=== PATIENT | female | born 1990 | race Caucasian/White ===

== ENCOUNTER 2019-06-04 18:48 | Emergency (ER) | payer OTHER ==
[2019-06-04 18:59] VITALS: BMI 32.0
--- NOTE | 2019-06-04 18:59 | PDOC ---
Rapid Medical Evaluation Time Seen by Provider: 06/04/19 18:54 Medical Evaluation: Allergies Allergy/AdvReac Type Severity Reaction Status Date / Time No Known Allergies Allergy Verified 06/04/19 18:54 06/04/19 18:55 The patient presents with L sided low back pain for the past two days. Took 400mg of Motrin around 4pm without relief of symptoms. Denies fever and dysuria , but admits to frequency and nausea. Pt reports having an IUD Exam: (+) CVA tenderness on the L, also associated LLQ discomfort Orders; Urine, labs Pt to proceed to the ER for further evaluation Discharge Disposition - Diagnosis Flank pain - Referrals - Patient Instructions - Post Discharge Activity
--- NOTE | 2019-06-04 20:02 | PDOC ---
History of Present Illness - General Chief Complaint: Pain, Acute Stated Complaint: LOWER BACK PAIN Time Seen by Provider: 06/04/19 18:54 History Source: Patient Exam Limitations: No Limitations - History of Present Illness Initial Comments: Patient reports sharp L back pain and LLQ abdominal pain "similar to having a baby" that has been present constantly today and has not been relieved with Motrin. Initially, the patient had sharp L back pain that woke her from sleep two nights ago, alleviated at that time after some Motrin. Yesterday the patient had some nausea, but no pain. Today, the patient denies nausea. Patient also reports months of lower abdominal pain "that feels like you have to pass gas but you can't", but that has typically been on both lower abdominal quadrants. She further notes that she has a copper IUD in place, and occasionally has crampy pain with this. She is not certain whether this pain is similar. LMP was about 2 weeks ago. On ROS, patient denies CP, SOB, fevers, chills, N/V, constipation/diarrhea. Patient does states she has had increased urinary frequency, up to 6 times today, without burning. 06/04/19 19:56 Past History - Past Medical History Allergies/Adverse Reactions: Allergies Allergy/AdvReac Type Severity Reaction Status Date / Time No Known Allergies Allergy Verified 06/04/19 18:54 Home Medications: Ambulatory Orders Ciprofloxacin [Cipro -] 500 mg PO Q12H #14 tablet 06/04/19 Ibuprofen 600 mg PO TID PRN #20 tablet 06/04/19 Tamsulosin HCl [Flomax] 0.4 mg PO BID #14 capsule 06/04/19 - Reproductive History LMP comment: Around 2 weeks ago (#): 3 Para: 2 - Suicide/Smoking/Psychosocial Hx Smoking History: Never smoked Have you smoked in the past 12 months: No Hx Alcohol Use: No Drug/Substance Use Hx: No Review of Systems - Review of Systems Able to Perform ROS?: Yes Constitutional: No: Chills, Fever, Night Sweats Respiratory: No: Cough, Shortness of Breath Cardiac (ROS): No: Chest Pain ABD/GI: No: Constipated, Diarrhea, Nausea, Vomiting : Yes: Frequency. No: Burning *Physical Exam - Vital Signs Last Vital Signs Temp Pulse Resp BP Pulse Ox 98.4 F 77 16 136/88 100 06/04/19 18:55 06/04/19 18:55 06/04/19 18:55 06/04/19 18:55 06/04/19 18:55 - Physical Exam General Appearance: Yes: Nourished, Appropriately Dressed HEENT: positive: EVY Neck: positive: Supple Respiratory/Chest: positive: Lungs Clear, Normal Breath Sounds Cardiovascular: positive: Regular Rhythm, Regular Rate Gastrointestinal/Abdominal: positive: Normal Bowel Sounds, Soft. negative: Tender ED Treatment Course - LABORATORY CBC & Chemistry Diagram: 06/04/19 20:10 06/04/19 20:10 Medical Decision Making - Medical Decision Making Patient history is concerning for pyelonephritis vs kidney stone vs UTI. Will send off urine, CBC, CMP, and urine hCG. Will also get lipase to check for pancreatitis. 06/04/19 20:05 UA reviewed, found to have 3+ blood. Concerning for renal colic. CT noncon abd/ pelvis ordered. Also shows UTI, will give outpatient abx to treat. 06/04/19 21:30 *DC/Admit/Observation/Transfer Diagnosis at time of Disposition: Flank pain, Nephrolithiasis - Discharge Dispostion Disposition: HOME Condition at time of disposition: Improved Decision to Admit order: No - Prescriptions Prescriptions: Ciprofloxacin [Cipro -] 500 mg PO Q12H #14 tablet Ibuprofen 600 mg PO TID PRN #20 tablet PRN Reason: Pain Tamsulosin HCl [Flomax] 0.4 mg PO BID #14 capsule - Referrals Referrals: Alberto Noble MD [Staff Physician] - - Patient Instructions Printed Discharge Instructions: Kidney Stones -- Adult Additional Instructions: You came to the ED with left sided flank pain. Using a CT scan of your abdomen and pelvis, you were diagnosed with a kidney stone. This should pass with adequate hydration. Please follow up with your urologist appointment. Take 1 Ibuprofen every 6 hours as needed for pain. Please take your ciprofloxacin antibiotic twice daily for one week. Return to the ED for worsening pain that does not respond to NSAIDs or Tylenol. Print Language: THAI - Post Discharge Activity
[2019-06-04] MEDS ORDERED: LACTATED RINGERS SOLUTION 1,000 ML/1,000 ML INFUS.BAG IV SCH (20:15)
[2019-06-04 20:34] LABS: BASO % 0.7 % (0-2.0); EOS % 0.7 % (0-4.5); HEMATOCRIT 41.1 % (32.4-45.2); HEMOGLOBIN 13.5 GM/dL (10.7-15.3); LYMPH % 27.8 % (8-40); MCH 29.5 pg (25.7-33.7); MCHC 32.7 g/dl (32.0-36.0); MEAN CELL VOLUME 90.1 fl (80-96); MEAN PLT VOLUME 8.9 fl (7.5-11.1); MONO % 5.8 % (3.8-10.2); PLATELET COUNT 240 K/MM3 (134-434); RBC 4.57 M/mm3 (3.60-5.2); RDW 13.2 % (11.6-15.6); WHITE BLOOD COUNT 11.5 K/mm3 (4.0-10.0)
[2019-06-04 21:02] LABS: ALBUMIN 3.8 g/dl (3.4-5.0); BILIRUBIN,TOTAL 0.2 mg/dL (0.2-1); CALCIUM 8.7 mg/dL (8.5-10.1); CREATININE 0.8 mg/dL (0.55-1.3); POTASSIUM 3.6 mmol/L (3.5-5.1); TOT PROT 7.6 g/dl (6.4-8.2)
[2019-06-04 21:05] LABS: HCG,QUALITATIVE URINE Negative
[2019-06-04 21:07] LABS: EPI CELLS 6.2 /HPF (0-5/HPF); HYALINE CASTS 10 /lpf (0-8); PH,URINE 5.5 (5.0-8.0); URINE APPEARANCE CLOUDY; URINE BACTERIA 617.5 /hpf (NEGATIVE); URINE BILIRUBIN NEGATIVE (NEGATIVE); URINE COLOR YELLOW; URINE GLUCOSE (UA) NEGATIVE (NEGATIVE); URINE KETONE 1+ (NEGATIVE); URINE LEUK ESTERASE 1+ (NEGATIVE); URINE NITRITE NEGATIVE (NEGATIVE); URINE PROTEIN TRACE (NEGATIVE); URINE RBC 288 /hpf (0-4); URINE WBC 28 /hpf (0-5)
[2019-06-04 21:38] LABS: URINE CRYSTALS CALCIUM OXALATE /hpf
[2019-06-04] MEDS ORDERED: KETOROLAC TROMETHAMINE 30 MG/1 ML VIAL IVPUSH ONE (22:12)
[2019-06-04] MEDS ORDERED: KETOROLAC TROMETHAMINE 30 MG/1 ML VIAL ONE (22:15)
--- NOTE | 2019-06-04 22:30 | PDOC ---
Documentation entered by Kylah Ortega SCRIBE, acting as scribe for Shaquille Champagne MD. Shaquille Champagne MD: This documentation has been prepared by the Shannon goddard Xhesika, SCRIBE, under my direction and personally reviewed by me in its entirety. I confirm that the documentation accurately reflects all work, treatment, procedures, and medical decision making performed by me. Attending Attestation - Resident Resident Name: James Casper - ED Attending Attestation I have performed the following: I have examined & evaluated the patient, The case was reviewed & discussed with the resident, I agree w/resident's findings & plan, Exceptions are as noted - HPI HPI: 06/04/19 20:24 The patient is a 29 year old female, with no significant PMH of who presents to the emergency department with 2 days of Left flank pain and left lower quadrant pain. Patient reported the pain started approximately 2 days ago as been constant and crampy-like. She denies any nausea or vomiting reported that ibuprofen had release some of the symptoms. Denies fevers or chills. Reports urinary difficulty but denies dysuria. Denies hematuria. The patient denies chest pain, shortness of breath, headache and dizziness. Denies fever, chills, nausea, vomiting, diarrhea and constipation. Denies hematuria. Allergies: NKA - Physicial Exam PE: 06/04/19 22:28 GENERAL: Awake, alert, and fully oriented, in no acute distress HEAD: No signs of trauma EYES: EOMI, sclera anicteric, conjunctiva clear ENT: Auricles normal inspection, hearing grossly normal, nares patent, oropharynx clear without exudates. Moist mucosa NECK: Normal ROM, supple, no lymphadenopathy, JVD, or masses ABDOMEN: Soft, nontender,No guarding, no rebound. No masses Left sided CVA tenderness EXTREMITIES: Normal range of motion, no edema. No clubbing or cyanosis. No cords, erythema, or tenderness NEUROLOGICAL: Cranial nerves II through XII grossly intact. Normal speech, normal gait SKIN: Warm, Dry, normal turgor, no rashes or lesions noted. - Medical Decision Making 06/04/19 22:29 Vital Signs Temp Pulse Resp BP Pulse Ox 98.4 F 77 16 136/88 100 06/04/19 18:55 06/04/19 18:55 06/04/19 18:55 06/04/19 18:55 06/04/19 18:55 After reviewing the blood work and the urine work, the urinalysis, trace calcium oxalates as well as 3+ bloods. I suspect patient likely has renal colic. We'll obtain a spiral CT and reassess. Pain control including NSAIDs. Patient is not . 06/04/19 22:48 CBC, BMP 06/04/19 20:10 06/04/19 20:10 CMP Sodium 143 mmol/L (136-145) 06/04/19 20:10 Potassium 3.6 mmol/L (3.5-5.1) 06/04/19 20:10 Chloride 112 mmol/L (98-107) H 06/04/19 20:10 Carbon Dioxide 25 mmol/L (21-32) 06/04/19 20:10 Anion Gap 6 MMOL/L (8-16) L 06/04/19 20:10 BUN 20.0 mg/dL (7-18) H 06/04/19 20:10 Creatinine 0.8 mg/dL (0.55-1.3) 06/04/19 20:10 Est GFR (CKD-EPI)AfAm 115.47 06/04/19 20:10 Est GFR (CKD-EPI)NonAf 99.63 06/04/19 20:10 Random Glucose 100 mg/dL (74-106) 06/04/19 20:10 Calcium 8.7 mg/dL (8.5-10.1) 06/04/19 20:10 Total Bilirubin 0.2 mg/dL (0.2-1) 06/04/19 20:10 AST 9 U/L (15-37) L 06/04/19 20:10 ALT 16 U/L (13-61) 06/04/19 20:10 Alkaline Phosphatase 130 U/L (45-117) H 06/04/19 20:10 Total Protein 7.6 g/dl (6.4-8.2) 06/04/19 20:10 Albumin 3.8 g/dl (3.4-5.0) 06/04/19 20:10 Lipase 191 U/L (73-393) 06/04/19 20:10 Urine Test Results Urine Color Yellow 06/04/19 20:10 Urine Appearance Cloudy 06/04/19 20:10 Urine pH 5.5 (5.0-8.0) 06/04/19 20:10 Ur Specific [place] 1.035 (1.010-1.035) 06/04/19 20:10 Urine Protein Trace (NEGATIVE) 06/04/19 20:10 Urine Glucose (UA) Negative (NEGATIVE) 06/04/19 20:10 Urine Ketones 1+ (NEGATIVE) H 06/04/19 20:10 Urine Blood 3+ (NEGATIVE) H 06/04/19 20:10 Urine Nitrite Negative (NEGATIVE) 06/04/19 20:10 Urine Bilirubin Negative (NEGATIVE) 06/04/19 20:10 Ur Leukocyte Esterase 1+ (NEGATIVE) H 06/04/19 20:10 CT shows 2.5 mm stone at left UVJ. Minimial hydronephrosis. Pleural based nodule in the right lower lobe measuring 5.5 mm and left lower lobe measuring 5.6 and 6.0. Pt has been informed of the results. I informed her that the nodules are usually not malignant, but should be followed up as an outpatient with a Chest CT in the next several months. A copy of the CT results were given to the patient and she will follow up. Given 1+ leukocyte esterase and kidney stone, will treat as ciprofloxacin 500 mg BID Flomax for the kidney stones. Follow up with urology. Return precautions given including severe pain, fever.
[2019-06-04 23:05] VITALS: BP 132/88; PULSE 82; TEMP 97.9
== END 2019-06-04 23:05 | disposition home or self-care (01) ==
LOC: JER 18:48
PROC: 3E0333Z Introduction of Anti-inflammatory into Peripheral Vein, Percutaneous Approach (ICD-10-PCS; principal; 2019-06-04)
PROC: 3E0337Z Introduction of Electrolytic and Water Balance Substance into Peripheral Vein, Percutaneous Approach (ICD-10-PCS; 2019-06-04)
DX: N20.0 Calculus of kidney (principal)
CPT/HCPCS: 36415; 74176-TC; 80053; 81003; 83690; 84703; 85025; 87086; 99281-25

== ENCOUNTER 2024-09-05 04:56 | Emergency (ER) | payer OTHER ==
[2024-09-05 05:14] VITALS: BP 134/79; PULSE 79; RESP 18; TEMP 98; BMI 29.9
[2024-09-05] MEDS ORDERED: ACETAMINOPHEN INJECTION 100 ML ONE (06:19)
[2024-09-05] MEDS ORDERED: FAMOTIDINE 20 MG/50 ML IVPB 20 MG/50 ML MG IVPB ONE (06:20)
[2024-09-05] MEDS ORDERED: MAG HYDROX/AL HYDROX/SIMETH 30 ML UNIT-DOSE CUP ONE (06:20)
[2024-09-05] MEDS: MAG HYDROX/AL HYDROX/SIMETH -MYLANTA- ORAL SUSPENSION PO ONE (06:27)
[2024-09-05] MEDS: ACETAMINOPHEN 1000 MG/100 ML BAG IVPB ONE (06:27)
[2024-09-05] MEDS: FAMOTIDINE 20 MG/50 ML IVPB 20 MG/50 ML MG IVPB ONE (06:28)
[2024-09-05 06:29] LABS: BASO % 0.7 % (0-2.0); EOS % 0.7 % (0-4.5); HEMATOCRIT 42.4 % (32.4-45.2); HEMOGLOBIN 13.8 GM/dL (10.7-15.3); LYMPH % 27.7 % (8-40); MCHC 32.7 g/dl (32.0-36.0); MEAN CELL VOLUME 91.8 fl (80-96); MEAN PLT VOLUME 7.9 fl (7.5-11.1); MONO % 6.2 % (3.8-10.2); NEUT % 64.7 % (42.8-82.8); PLATELET COUNT 242 10^3/uL (134-434); RBC 4.61 M/mm3 (3.60-5.2); RDW 13.7 % (11.6-15.6); WHITE BLOOD COUNT 6.6 K/mm3 (4.0-10.0)
[2024-09-05 06:48] LABS: ALBUMIN 4.3 g/dl (3.4-5.0); BLOOD UREA NITROGEN 16.2 mg/dL (7-18); CALCIUM 9.1 mg/dL (8.5-10.1)
[2024-09-05 06:51] LABS: CREATININE 0.7 mg/dL (0.55-1.3)
[2024-09-05 06:52] LABS: BILIRUBIN,TOTAL 0.4 mg/dL (0.2-1); TOT PROT 7.6 g/dl (6.4-8.2)
[2024-09-05 07:59] LABS: EPI CELLS 33 /uL (0-25.1); HYALINE CASTS 1 /uL (0-3.1); URINE APPEARANCE CLEAR; URINE BACTERIA 595 /uL (0-1359); URINE BILIRUBIN NEGATIVE (NEGATIVE); URINE COLOR YELLOW; URINE GLUCOSE (UA) NEGATIVE (NEGATIVE); URINE KETONE NEGATIVE (NEGATIVE); URINE LEUK ESTERASE 1+ (NEGATIVE); URINE NITRITE NEGATIVE (NEGATIVE); URINE PROTEIN NEGATIVE (NEGATIVE); URINE RBC 8 /uL (0-23.9); URINE UROBILINOGEN 0.2 mg/dL (0.2-1.0); URINE WBC 48 /uL (0-25.8)
[2024-09-05 13:20] LABS: HIV INTERPRETATION NEGATIVE (NEGATIVE)
== END 2024-09-05 07:45 | disposition home or self-care (01) ==
LOC: JER 04:56
PROC: 3E033GC Introduction of Other Therapeutic Substance into Peripheral Vein, Percutaneous Approach (ICD-10-PCS; principal; 2024-09-05)
PROC: 3E033NZ Introduction of Analgesics, Hypnotics, Sedatives into Peripheral Vein, Percutaneous Approach (ICD-10-PCS; 2024-09-05)
DX: R10.13 Epigastric pain (principal); R10.33 Periumbilical pain
CPT/HCPCS: 36415; 71046-TC-FY; 80053; 81003; 83690; 84702; 85025; 86803; 87389; 93005; 93010; 99285-25; J0131